=== PATIENT | female | born 2000 | race Caucasian/White ===

== ENCOUNTER 2022-02-13 20:49 | Emergency (ER) | payer OTHER, SELFPAY ==
[2022-02-13 20:56] VITALS: BP 127/80; PULSE 65; RESP 16; TEMP 37.1; O2SAT 100; BMI 19.2
--- NOTE | 2022-02-13 20:59 | PC.NURSE ---
former opiate user, on seboxone
[2022-02-13] MEDS: ONDANSETRON 4 MG/2 ML INJ IV (21:03)
[2022-02-13] MEDS: SODIUM CHLORIDE 0.9% 1,000 ML 1000 ML IV (21:03)
[2022-02-13] MEDS: PANTOPRAZOLE 40 MG VIAL IV (21:14)
[2022-02-13 21:17] LABS: Add Manual Diff / Slide Review NO; Basophils Absolute Auto 0 /uL (0-100); Basophils Percent Auto 0.5 % (0-2); Eosinophils Absolute Auto 0 /uL (0-450); Eosinophils Percent Auto 0.1 % (2-4); Hemoglobin 14.9 g/dL (12.0-16.0); Lymphocytes Absolute Auto 1800 /uL (1100-4500); Lymphocytes Percent Auto 22.4 % (25-40); Mean Corpuscular HGB Conc 34.6 % (30-36); Mean Corpuscular Hemoglobin 29.7 PG (26-34); Mean Corpuscular Volume 85.9 fL (80-100); Monocytes Absolute Auto 400 /uL (0-900); Monocytes Percent Auto 4.9 % (3-14); Neutrophils Absolute Auto 5700 /uL (1500-7000); Neutrophils Percent Auto 72.1 % (50-75); Platelet Count 236 X10^3/uL (150-400); Red Blood Cell Count 5.01 X10^6/uL (4.0-5.2); White Blood Cell Count 7.9 X10^3/uL (4.5-11.0)
[2022-02-13 21:23] LABS: Pregnancy Test Serum,Qual Negative (Negative)
[2022-02-13 21:24] LABS: Alanine Aminotransferase 15 IU/L (<35); Albumin 5.2 g/dL (3.5-5.0); Albumin Globulin Ratio 1.7 (1.0-2.8); Alkaline Phosphatase 63 U/L (38-126); Aspartate Aminotransferase 23 IU/L (14-36); BUN Creatinine Ratio 16.9 (6-22); Blood Urea Nitrogen 14 mg/dL (7-17); Carbon Dioxide 25 mmol/L (22-32); Chloride 100 mmol/L (98-107); Estimated Glomerular Filt Rate > 60 mL/min (>60); Globulin 3.1 g/dL (1.7-4.1); Glucose 115 mg/dL (70-100); HEMOLYSIS < 15 (0-50); Lipase 669 U/L (23-300); Potassium 3.7 mmol/L (3.4-5.1); Sodium 139 mmol/L (137-145); Total Protein 8.3 g/dL (6.3-8.2)
[2022-02-13 21:38] LABS: COVID19 -Nasal RAPID Negative (Negative)
--- NOTE | 2022-02-13 21:51 | ED.NAVMDI ---
HPI - Nausea/Vomiting/Diarrhea General Chief complaint: Nausea/Vomiting/Diarrhea Stated complaint: nvd 2 days Time Seen by Provider: 02/13/22 20:55 Source: patient and family Mode of arrival: Wheelchair History of Present Illness HPI Narrative: Patient is a 21-year-old female who is here for evaluation of nausea vomiting for the past couple days. She denied any diarrhea. She states that the symptoms started gradually a couple days ago but a been consistent since then. She is having some burning in her upper abdomen but she thinks this is because of all the vomiting. She does have a history of opioid abuse. Is on Suboxone. Missed today of her Suboxone yesterday. No recent travel. No fevers. No urinary symptoms. Is here in the emergency department with her mother. Related Data Allergies Allergy/AdvReac Type Severity Reaction Status Date / Time No Known Drug Allergies Allergy Verified 02/13/22 20:56 Review of Systems Constitutional Constitutional: Denies fever(s) Cardiovascular Cardiovascular: Reports system reviewed and no additional complaints, except as documented Respiratory Respiratory: Reports system reviewed and no additional complaints, except as documented Gastrointestinal Gastrointestinal: Reports as per HPI and Reports system reviewed and no additional complaints, except as documented Genitourinary Genitourinary: Reports system reviewed and no additional complaints, except as documented Integumentary/Breasts Skin/Breast: Reports system reviewed and no additional complaints, except as documented Hematologic/Lymphatic On Anticoagulants: No Patient History Medical History Opioid abuse Social History Smoking Status: Current every day smoker Smoking Status: Current every day smoker tobacco type: vaping Substance Use Type: other Exam Initial Vital Signs Initial Vital Signs: Vital Signs Temperature 98.8 F 02/13/22 20:56 Pulse Rate 65 02/13/22 20:56 Respiratory Rate 16 02/13/22 20:56 Blood Pressure 127/80 02/13/22 20:56 Pulse Oximetry 100 02/13/22 20:56 HENMT Head: normal to inspection and normocephalic Resp Effort & Inspection: normal respiratory effort Auscultation: clear to auscultation bilaterally Cardio Rate: bradycardic Rhythm: regular rhythm GI Inspection: normal to inspection Palpation: soft and No tender Back/Spine/Pelvis Back: No CVA tenderness Skin General: no rashes or lesions noted Neuro General: patient alert, patient awake and moves all extremities Extrem General: normal to inspection and capillary refill normal Course Orders Ordered: ED Orders 02/13/22 21:00 Complete Blood Count AUTO DIFF Stat Comprehensive Metabolic Panel Stat Lipase Stat Test Serum,Qual Stat 02/13/22 21:15 COVID19 -Nasal RAPID/Pre-Proc Stat 02/13/22 21:41 Urine Culture Stat Urine Microscopic Stat Discontinued Medications Al Hydrox/Mg Hydrox/Simethicone 20 ml/ Lidocaine HCl 15 ml 0 ml PO NOW ONE Stop: 02/13/22 21:52 Last Admin: 02/13/22 22:05 Dose: 35 ml Documented by: LEIDY Sodium Chloride (Normal Saline 0.9%) 1,000 mls @ 1,000 mls/hr IV BOLUS ONE Stop: 02/13/22 21:55 Last Infusion: 02/13/22 22:21 Dose: 0 mls/hr Documented by: Admin: 02/13/22 21:03 Dose: 1,000 mls/hr Documented by: LEIDY Ondansetron HCl (Ondansetron 4 Mg/2 Ml Inj) 4 mg IV NOW ONE Stop: 02/13/22 20:57 Last Admin: 02/13/22 21:03 Dose: 4 mg Documented by: LEIDY Pantoprazole Sodium (Pantoprazole 40 Mg Vial) 40 mg IV NOW ONE Stop: 02/13/22 21:10 Last Admin: 02/13/22 21:14 Dose: 40 mg Documented by: MELISSA Vital Signs Vital signs: Vital Signs - 8 hr 02/13/22 20:56 02/13/22 22:30 Temperature 98.8 F Pulse Rate 65 55 L Respiratory Rate 16 18 Blood Pressure 127/80 127/93 H Pulse Oximetry 100 100 MDM - Nausea/Vomiting/Diarrhea Lab Data Attestation: I reviewed the patient's lab results. Result diagrams: 02/13/22 21:00 02/13/22 21:00 Labs: Lab Results 02/13/22 02/13/22 02/13/22 Range/Units 21:00 21:00 21:00 WBC 7.9 (4.5-11.0) X10^3/uL RBC 5.01 (4.0-5.2) X10^6/uL Hgb 14.9 (12.0-16.0) g/dL Hct 43.0 (36-46) % MCV 85.9 (80-100) fL MCH 29.7 (26-34) PG MCHC 34.6 (30-36) % RDW 13.0 (11.6-14.8) % Plt Count 236 (150-400) X10^3/uL Neut % (Auto) 72.1 (50-75) % Lymph % (Auto) 22.4 L (25-40) % Summers % (Auto) 4.9 (3-14) % Eos % (Auto) 0.1 L (2-4) % Baso % (Auto) 0.5 (0-2) % Neut # (Auto) 5700 (5746-4256) /uL Lymph # (Auto) 1800 (8886-7584) /uL Summers # (Auto) 400 (0-900) /uL Eos # (Auto) 0 (0-450) /uL Baso # (Auto) 0 (0-100) /uL Sodium 139 (137-145) mmol/L Potassium 3.7 (3.4-5.1) mmol/L Chloride 100 (98-107) mmol/L Carbon Dioxide 25 (22-32) mmol/L BUN 14 (7-17) mg/dL Creatinine 0.83 (0.52-1.04) mg/dL Estimated GFR > 60 (>60) mL/min BUN/Creatinine Ratio 16.9 (6-22) Glucose 115 H (70-100) mg/dL Calcium 10.0 (8.4-10.2) mg/dL Total Bilirubin 1.0 (0.2-1.3) mg/dL AST 23 (14-36) IU/L ALT 15 (<35) IU/L Alkaline Phosphatase 63 (38-126) U/L Total Protein 8.3 H (6.3-8.2) g/dL Albumin 5.2 H (3.5-5.0) g/dL Globulin 3.1 (1.7-4.1) g/dL Albumin/Globulin Ratio 1.7 (1.0-2.8) Lipase 669 H (23-300) U/L Serum , Qual Negative (Negative) Urine RBC (0-5/HPF) Urine WBC (0-5/HPF) Ur Squamous Epith Cells (0-5/HPF) Urine Bacteria (None) Urine Mucus (Negative) Ur Culture Indicated? SARS-CoV-2 (PCR) (Negative) 02/13/22 02/13/22 Range/Units 21:15 21:41 WBC (4.5-11.0) X10^3/uL RBC (4.0-5.2) X10^6/uL Hgb (12.0-16.0) g/dL Hct (36-46) % MCV (80-100) fL MCH (26-34) PG MCHC (30-36) % RDW (11.6-14.8) % Plt Count (150-400) X10^3/uL Neut % (Auto) (50-75) % Lymph % (Auto) (25-40) % Summers % (Auto) (3-14) % Eos % (Auto) (2-4) % Baso % (Auto) (0-2) % Neut # (Auto) (5403-2967) /uL Lymph # (Auto) (5965-5143) /uL Summers # (Auto) (0-900) /uL Eos # (Auto) (0-450) /uL Baso # (Auto) (0-100) /uL Sodium (137-145) mmol/L Potassium (3.4-5.1) mmol/L Chloride (98-107) mmol/L Carbon Dioxide (22-32) mmol/L BUN (7-17) mg/dL Creatinine (0.52-1.04) mg/dL Estimated GFR (>60) mL/min BUN/Creatinine Ratio (6-22) Glucose (70-100) mg/dL Calcium (8.4-10.2) mg/dL Total Bilirubin (0.2-1.3) mg/dL AST (14-36) IU/L ALT (<35) IU/L Alkaline Phosphatase (38-126) U/L Total Protein (6.3-8.2) g/dL Albumin (3.5-5.0) g/dL Globulin (1.7-4.1) g/dL Albumin/Globulin Ratio (1.0-2.8) Lipase (23-300) U/L Serum , Qual (Negative) Urine RBC None seen (0-5/HPF) Urine WBC 1-5/hpf (0-5/HPF) Ur Squamous Epith Cells 1-5 /hpf (0-5/HPF) Urine Bacteria Few (2-10) H (None) Urine Mucus 3+ H (Negative) Ur Culture Indicated? Specimen cultured SARS-CoV-2 (PCR) Negative (Negative) Urine Dip Bedside Urine Glucose Negative Bedside Urine Bilirubin - Negative Bedside Urine Ketone ++ 40 Urine Specific [place] 1.015 Bedside Urine Occult Blood - Negative Bedside Urine pH 7.5 Bedside Urine Protein ++ 100 Bedside Urine Urobilinogen - Negative Bedside Urine Nitrite - Negative Bedside Urine Leukocytes +/- 15 Esterase MDM Narrative Medical decision making narrative: Patient did arrive with the initial complaint of nausea and vomiting this been going on for the past couple days. After discussion with the patient and her mother bedside it turns out that potentially the real issue is more of a psychiatric concern. Mother states the patient is suicidal and has been depressed for some time. Mother seems to think that the nausea and vomiting today are a manifestation of psychiatric illness. The patient has been admitted in the past for psychiatric issues. Patient did express to me that she was not suicidal. She also expressed that to nursing. Patient is not clinically intoxicated. GCS of 15. Alert oriented x3. Her labs are unremarkable. Exam is benign. Patient stated that she wants to go home. She expressed 1 more time to nursing staff that she was not suicidal. Patient decided that she wanted to leave and signed against medical advice paperwork prior to my final discussion with the patient and her mother. Discharge Plan Departure Patient Disposition: Left Against Medical Advice Clinical Impression: Acute vomiting Stand Alone Forms: Against Medical Advice
[2022-02-13] MEDS: MAG HYDROX/ALUMINUM/SIMETH SUS 20 ML, LIDOCAINE VISCOUS 2% 15 ML PO (22:05)
--- NOTE | 2022-02-13 22:21 | PC.NURSE ---
Pt told this RN she wanted to leave. Mom stated pt was suicidal. Pt denied. Stated she just wanted to go home and take a shower. I am just depressed, Im not going to go home and kill myself, I want to shower. Spoke with patient without mom present and reasked SI questions. Pt denied. Told patietn she can come back when she needs to and pt also waited until IV bag was finished before leaving. Spoke with mother and discussed reasons why we cant keep patietn against her will. Mother showed cutting scars on her arm and says she has a history of cutting, all scars are healed and no new scars to arms. Pt cooperative and calm throughout.
[2022-02-13 22:30] VITALS: BP 127/93; PULSE 55; RESP 18; O2SAT 100
[2022-02-13 22:30] LABS: Bacteria Urine Few (2-10); RBC Urine None Seen (0-5/HPF); Squamous Epithelial Cell Urine 1-5 /HPF (0-5/HPF); WBC Urine 1-5/HPF (0-5/HPF)
[2022-02-13 22:31] LABS: Culture Indicated Urine Specimen Cultured; Mucus Urine 3+ (Negative)
== END 2022-02-13 22:30 | disposition left against medical advice (07) ==
PROVIDERS: Emergency Provider Emergency Medicine
DX: R11.2 Nausea with vomiting, unspecified (principal); Z53.29 Procedure and treatment not carried out because of patient's decision for other reasons; Z20.822 Contact with and (suspected) exposure to COVID-19
CPT/HCPCS: 36415; 80053; 81003; 81015; 83690; 84703; 85025; 87086; 87635; 96374; 96375; 99284; C9803; C9113; J2405